=== PATIENT | female | born 1960 | race American Indian/Alaskan Native ===

== ENCOUNTER 2017-02-17 15:07 | Outpatient (CLI) | payer OTHER | END 2017-02-17 15:08 | disposition home or self-care (01) | LOC: LABHHL 15:07 | PROVIDERS: ATTEND Surgery | DX: N60.01 Solitary cyst of right breast (principal); N60.02 Solitary cyst of left breast | CPT/HCPCS: 88112 ==

== ENCOUNTER 2017-03-03 15:38 | Outpatient (CLI) | payer OTHER | END 2017-03-03 15:39 | disposition home or self-care (01) | LOC: LABHHL 15:38 | PROVIDERS: ATTEND Surgery | DX: N63 Unspecified lump in breast (principal); N64.89 Other specified disorders of breast | CPT/HCPCS: 88305 ==

== ENCOUNTER 2020-09-08 10:48 | Outpatient (CLI) | payer OTHER ==
--- NOTE | 2020-09-08 17:20 | Mammography Report ---
DIGITAL SCREENING MAMMOGRAM WITH CAD, 09/08/2020 CLINICAL INFORMATION / INDICATION: Routine screening mammography. SCREENING MAMMO TECHNIQUE: Digital bilateral 2D mammography was obtained in the craniocaudal and mediolateral obliqu e projections. This examination was interpreted with the benefit of Computer-Aided Detection analysis . COMPARISON: 07/22/2017, 07/28/2018, 08/29/2019 FINDINGS: Breast Density: There are scattered areas of fibroglandular density. No dominant mass, suspicious calcifications, or architectural distortion in either breast. Biopsy marking clip is noted on the left. There are stable left calcifications. IMPRESSION: No mammographic evidence of malignancy. Follow up recommendation: Routine yearly BI-RADS Category 2: Benign. A "normal" or negative report should not discourage follow up or biopsy of a clinically significant f inding. A written summary of these findings will be mailed to the patient. The patient will be entered into a mammography reporting system which will generate a reminder letter for the patient's next appointmen t at the appropriate interval. The [employer] recommends yearly mammograms starting at age 40 and continuing as l vin as a woman is in good health. Breast MRI is recommended for women with an approximate 20-25% or greater lifetime risk of breast cancer, including women with a strong family history of breast or ova mena cancer or who have been treated for Hodgkin's disease. Signer Name: Juan Mendez MD Signed: 09/08/2020 5:16 PM Workstation Name: [id number]
== END 2020-09-08 10:49 | disposition home or self-care (01) ==
LOC: SPVWC 10:48
PROVIDERS: ATTEND Surgery
DX: Z12.31 Encounter for screening mammogram for malignant neoplasm of breast (principal); N64.89 Other specified disorders of breast
CPT/HCPCS: 77067